=== PATIENT | female | born 1990 | race African-American/Black ===

== ENCOUNTER 2016-11-06 20:09 | Emergency (ER) | payer MEDICAID ==
[~2016-11-06] VITALS: Ht 160 cm; Wt 54.0 kg
[2016-11-06] MEDS ORDERED: BACITRACIN ZINC OINT UDPKT TOP ONE (23:45)
[2016-11-06] MEDS ORDERED: TETANUS, DIPHTHERIA, PERTUSSIS VAC/PF 0.5ML (>7YR OLD) IM ONE (23:45)
[2016-11-06] MEDS ORDERED: LIDOCAINE HCL 1% 20ML VIAL (Pyxis) INJ MC ONE (23:45)
[2016-11-07] MEDS ORDERED: IBUPROFEN 600MG TABLET PO ONE (01:30)
[2016-11-07 01:45] VITALS: BP 116/85
== END 2016-11-07 01:56 | disposition home or self-care (01) ==
LOC: ER 11-07 00:18
DX: S61.310A Laceration without foreign body of right index finger with damage to nail, initial encounter (principal); D64.9 Anemia, unspecified; W23.0XXA Caught, crushed, jammed, or pinched between moving objects, initial encounter; Y93.89 Activity, other specified; Y92.89 Other specified places as the place of occurrence of the external cause; Y99.8 Other external cause status
CPT/HCPCS: 12001; 73140; 90471; 90715; 99284; J3490; Z7610

== ENCOUNTER 2016-11-13 16:15 | Emergency (ER) | payer MEDICAID ==
[~2016-11-13] VITALS: Ht 160 cm; Wt 54.0 kg
[2016-11-13 16:25] VITALS: BP 113/82
== END 2016-11-13 19:29 | disposition left against medical advice (07) ==
LOC: ER 16:15
DX: Z48.02 Encounter for removal of sutures (principal); Z53.21 Procedure and treatment not carried out due to patient leaving prior to being seen by health care provider